=== PATIENT | female | born 1935 | race Caucasian/White ===

== ENCOUNTER 2020-03-19 13:59 | Outpatient (RCR) | payer MEDICARE, BC, SELFPAY ==
--- NOTE | 2020-03-19 15:00 | PTOPEVAL ---
Thank you for referring Cassie Vergara to [facility] [place].? The patient is scheduled to be seen for therapy? ____x/week for ___ weeks. Please review, sign, date and return this plan of care LORETTA. I agree with and certify that the following plan of care is medically necessary. Referring Physician Date Admitting Provider: Attending Provider: Mando Moura, MD Referring Provider: *PT Outpatient Evaluation Start: 03/19/20 14:14 Freq: Status: Active Protocol: Document 03/19/20 14:15 [facility] (Rec: 03/19/20 14:50 [facility] [email or web address]) Therapy Assessment Status Assessment Status Assessment Status Evaluation Outpatient Past Medical History Past Medical History Source of Past Medical History Patient Other Source of Past Medical History see patient intake form Evaluation Information Problem Diagnosis s/p R TKA Onset 03/04/20 Additional Evaluation Detail LEFS = 63% functionally declined Subjective Information patient reports she has Query Text:As Reported By Patient/ surgery on the R knee for a Family TKA on 03/04/20. she reports she had a previous fracture and surgery on the R knee in the past. she reports during her R TKA, her surgeon had to remove 2 of her old fracture screws. she reports she is now tight, sore, pain, and has difficulty walking. she reports she returns to see him on 04/12/20. she reports she did have home health for 3 visits of therapy. Prior Level of Function Comments Additional Prior Level of Function prior to surgery, patient Comments reports she was walking without any AD, but did limp. she reports she was walking up and down steps 1 stair at a time. Pain Assessment Timing of Pain Assessment Timing of Pain Assessment Assessment Pain Scale Pain Scale Used Numeric (1 - 10) Self Report Pain Assessment Right Knee(s) Reported Pain Level 4 Pain Frequency Acute,Continuous Lowest Pain Intensity 3 Greatest Pain Intensity 6 Pain Score Pain Score 4: Self Report Interventions Used Interventions Used By Clinicians Compression Pump,Elevation, Exercise,Ice Lower Extremity Range of Motion Knee Range of Motion Right Knee Flexion Range of Motion - Active 100 Knee Exte
--- NOTE | 2020-04-11 16:30 | PTOPEVAL ---
Thank you for referring Cassie Vergara to [facility].? The patient is scheduled to be seen for therapy? ____x/week for ___ weeks. Please review, sign, date and return this plan of care LORETTA. I agree with and certify that the following plan of care is medically necessary. Referring Physician Date Admitting Provider: Attending Provider: Mando Moura, Referring Provider: *PT Outpatient Evaluation Start: 03/19/20 14:14 Freq: Status: Active Protocol: Document 04/11/20 14:00 [facility] (Rec: 04/11/20 16:30 [facility] [email or web address]) Therapy Assessment Status Assessment Status Assessment Status Re-evaluation Outpatient Past Medical History Past Medical History Source of Past Medical History Patient Other Source of Past Medical History see patient intake form Evaluation Information Problem Diagnosis s/p R TKA Subjective Information patient reports she feels Query Text:As Reported By Patient/ better this date. she reports Family she is carrying her cane, but does not really use it. she reports she is compliant with her HEP at home. Pain Assessment Timing of Pain Assessment Timing of Pain Assessment Assessment Pain Scale Pain Scale Used Numeric (1 - 10) Self Report Pain Assessment Right Knee(s) Reported Pain Level 2 Pain Score Pain Score 2: Self Report Interventions Used Interventions Used By Clinicians Activity or ADL's,Elevation, Exercise Lower Extremity Range of Motion Knee Range of Motion Right Knee Flexion Range of Motion - Active 105 Knee Extension Range of Motion - Active -5 Query Text: Knee Extension Range of Motion - Passive 0 Lower Extremity Muscle Strength Testing Hip Strength Right Hip Flexion Strength 4 Good Hip Strength Comments no extension lag of the R LE with SLR Knee Strength Right Knee Flexion Strength 4+ Good + Knee Extension Strength 4+ Good + Gait Assessment Gait Assessment Additional Ambulation Comments patient ambulates with step through bilateral gait mechanics. she ambulates with the use of a cane in the contralateral UE . however, she does not contact the floor with cane every step. Stair Climbing Assessment Stair Climbing Assessment Stair Climbing Comments patient ambulates up and down 2 steps with reciprocal mechanics using bilateral UE hand rails for sup
== END 2020-05-14 13:44 | disposition home or self-care (01) ==
LOC: CHSPT 13:59
PROVIDERS: Visit Provider Orthopaedic Surgery
DX: Z96.651 Presence of right artificial knee joint (principal)
CPT/HCPCS: 97016; 97110; 97161; 97530

== ENCOUNTER 2021-10-28 09:54 | Outpatient (RCR) | payer MEDICARE, BC, SELFPAY ==
--- NOTE | 2021-11-03 06:50 | PTOPEVAL ---
Thank you for referring Cassie Vergara to [facility].? The patient is scheduled to be seen for therapy? _2___x/week for 8 visits. Please review, sign, date and return this plan of care LORETTA. I agree with and certify that the following plan of care is medically necessary. Referring Physician Date Admitting Provider: Attending Provider: Cynthia Nance, ENGINE[employer] Referring Provider: *PT Outpatient Evaluation Start: 11/03/21 06:40 Freq: Status: Active Protocol: Document 10/28/21 10:10 [facility] (Rec: 11/03/21 06:50 [facility] [email or web address]) Therapy Assessment Status Assessment Status Assessment Status Evaluation Evaluation Information Problem Diagnosis right knee pain Onset 06/24/21 Subjective Information Pt. reports that she developed Query Text:As Reported By Patient/ right knee pain several Family months ago. she notes a gradual onset of pain. Pt. describes her pain at the right chahal below the knee. she describes pain as a dull ache through the entire chahal. She states that pain can be intermittent, but most notable with being on her feet while doing outdoor work or house cleaning. She states that she is capable of completing all ADL's, she however has to rest more frequently due to pain. she states that her goal for therapy is to reduce her right knee pain. Prior Level of Function Activity Level (Last 3 Months) Occupation retired Hand Dominance Right Activity of Daily Living Ability Independent Indoor/Home Mobility Independent Community Mobility Independent Stairs Ability Independent Functional Cognition (Planning, Shopping Independent , Taking Medications) Cooking Yes Cleaning Yes Laundry Yes Shopping Yes Driving Yes Pain Assessment Timing of Pain Assessment Timing of Pain Assessment Pre-Treatment Pain Scale Pain Scale Used Numeric (1 - 10) Self Report Pain Assessment Lower Back Reported Pain Level 2 Left Chahal(s) Reported Pain Level 0 Pain Score Pain Score 0,2: Self Report Interventions Used Interventions Used By Clinicians Exercise C
--- NOTE | 2022-01-07 08:32 | PCPTNOTE ---
Mrs. Vergara attended a total of 5 treatment sessions from 11/03/21 to 11/21/21. She has failed to attend any other sessions and will be discharged from our care. Refer to last daily note for pt. discharge status.
== END 2021-11-21 14:20 | disposition home or self-care (01) ==
LOC: CHSPT 09:54
PROVIDERS: Visit Provider Nurse Practitioner Family
DX: S83.91XA Sprain of unspecified site of right knee, initial encounter (principal)
CPT/HCPCS: 97014; 97110; 97140; 97161; G0283

== ENCOUNTER 2022-07-08 09:30 | Outpatient (RCR) | payer MEDICARE, SELFPAY | END 2022-07-10 15:03 | disposition home or self-care (01) | PROVIDERS: PCP Family Medicine | DX: Z95.5 Presence of coronary angioplasty implant and graft (principal) | CPT/HCPCS: 93798 ==